=== PATIENT | male | born 1935 | race Caucasian/White ===

== ENCOUNTER 2021-11-14 09:27 | Observation (INO) | payer MEDICARE ==
[2021-11-14] MEDS ORDERED: SODIUM CHLORIDE 0.9% 1,000 ML IV STA (09:33)
[2021-11-14] MEDS ORDERED: PANTOPRAZOLE 40 MG/10 ML VIAL IVP STA (09:33)
[2021-11-14] MEDS ORDERED: OCTREOTIDE 100 MCG/ML INJ IVP STA (09:33)
[2021-11-14] MEDS ORDERED: SODIUM CHLORIDE 0.9% 500 ML 500 ML IV STA (09:33)
--- NOTE | 2021-11-14 09:52 | ED ---
General Adult HPI - General Stated complaint: syncope Time Seen by Provider: 11/14/21 09:30 Source: patient, RN notes reviewed, old records reviewed - History of Present Illness Initial comments: This is an 86-year-old male who presents emergency Department after had a syncopal episode today in the shower. According to the report we received from EMS patient had an episode of hematemesis yesterday and dark black stools today. Patient then went into the shower and passed out and his blood pressures closely brought into the emergency department. Patient himself states he has no pain is not short of breath patient does feel overall very fatigued. Patient denies any chest pain or palpitations. Patient denies any fever chills or cough. Patient denies being lightheaded while lying in bed. Patient denies any injury from the syncopal episode. - Related Data Home Medications Medication Instructions Recorded Confirmed Albuterol Nebulized [Ventolin 2.5 mg INHALATION RT-Q8H 10/29/21 11/14/21 Nebulized] Fluticasone/Umeclidin/Vilanter 1 puff INHALATION RT-DAILY 10/29/21 11/14/21 [Trelegy Ellipta 100-62.5-25] Metoprolol Tartrate [Lopressor] 50 mg PO BID 10/31/21 11/14/21 Acetaminophen Tab [Tylenol] 650 mg PO BID@0800,1600 11/14/21 11/14/21 Acetaminophen [Tylenol 8 Hour] 650 mg PO Q6H PRN 11/14/21 11/14/21 Aspirin 81 mg PO DAILY 11/14/21 11/14/21 Fenofibrate,Micronized 200 mg PO DAILY 11/14/21 11/14/21 [Fenofibrate] Sodium Bicarbonate 650 mg PO DAILY 11/14/21 11/14/21 hydrALAZINE HCL [Apresoline] 50 mg PO Q8H 11/14/21 11/14/21 Previous Rx's Medication Instructions Recorded Lactulose [Cephulac] 20 gm PO DAILY PRN ml 11/04/21 Melatonin 3 mg PO HS PRN tablet 11/04/21 Allergies Allergy/AdvReac Type Severity Reaction Status Date / Time No Known Allergies Allergy Verified 11/14/21 09:39 Review of Systems ROS Statement: Those systems with pertinent positive or pertinent negative responses have been documented in the HPI. ROS Other: All systems not noted in ROS Statement are negative. Past Medical History Past Medical History: Atrial Fibrillation, COPD, Hypertension History of Any Multi-Drug Resistant Organisms: None Reported Past Surgical History: Unable to Obtain, Joint Replacement, Orthopedic Surgery Additional Past Surgical History / Comment(s): Bilat knees Past Anesthesia/Blood Transfusion Reactions: No Reported Reaction Past Psychological History: No Psychological Hx Reported Smoking Status: Never smoker Past Alcohol Use History: None Reported Past Drug Use History: None Reported General Exam - General Exam Comments Initial Comments: GENERAL: Patient is well-developed and well-nourished. Patient is nontoxic and well- hydrated and is in mild distress. ENT: Neck is soft and supple. No significant lymphadenopathy is noted. Oropharynx is clear. Patient's tongue is pale. Moist mucous membranes. Neck has full range of motion without eliciting any pain. There is no thyroid enlargement and no masses were felt. EYES: The sclera were anicteric and conjunctiva is pale. Extraocular movements were intact and pupils were equal round and reactive to light. Eyelids were un remarkable. PULMONARY: Unlabored respirations. Good breath sounds bilaterally. No audible rales r honchi or wheezing was noted. CARDIOVASCULAR: There is a regular rate and rhythm without any murmurs gallops or rubs. ABDOMEN: Soft and nontender with normal bowel sounds. No palpable organomegaly was noted. There is no palpable pulsatile mass. SKIN: Patient's skin is pale NEUROLOGIC: Patient is alert and oriented x3. Cranial nerves II through XII are grossly intact. Motor and sensory are also intact. Normal speech, volume and content. Symmetrical smile. MUSCULOSKELETAL: Normal extremities with adequate strength and full range of motion. LYMPHATICS: No significant lymphadenopathy is noted PSYCHIATRIC: Normal psychiatric evaluation. Course Vital Signs 11/14/21 11/14/21 11/14/21 09:49 10:44 11:00 Temperature 97.8 F Pulse Rate 78 78 76 Respiratory 12 18 16 Rate Blood Pressure 93/39 139/99 128/81 O2 Sat by Pulse 95 95 Oximetry Medical Decision Making - Medical Decision Making EKG shows sinus rhythm with occasional PAC at a rate of 78 bpm [place] interval 274 QRS is 108 QT interval 398 QTC is 453. Patient's EKG shows some T-wave inversions in V5 and V6 and leads 1 and aVL which are seen on previous EKG. Patient and son agree that he is a DO NOT RESUSCITATE and the patient refuses blood and son is in agreement. I spoke with Dr. Maurice he agreed to admit the patient admitted the patient wrote admitting orders. - Lab Data Result diagrams: 11/14/21 09:54 11/14/21 09:54 Lab Results 11/14/21 11/14/21 11/14/21 Range/Units 09:54 09:54 09:54 WBC 6.3 (3.8-10.6) k/uL RBC 2.12 L (4.30-5.90) m/uL Hgb 6.9 L* D (13.0-17.5) gm/dL Hct 22.3 L (39.0-53.0) % MCV 105.2 H (80.0-100.0) fL MCH 32.6 (25.0-35.0) pg MCHC 31.0 (31.0-37.0) g/dL RDW 14.8 (11.5-15.5) % Plt Count 257 (150-450) k/uL MPV 9.2 Neutrophils % 75 % Lymphocytes % 18 % Monocytes % 4 % Eosinophils % 0 % Basophils % 0 % Neutrophils # 4.7 (1.3-7.7) k/uL Lymphocytes # 1.1 (1.0-4.8) k/uL Monocytes # 0.2 (0-1.0) k/uL Eosinophils # 0.0 (0-0.7) k/uL Basophils # 0.0 (0-0.2) k/uL Hypochromasia Moderate Macrocytosis Moderate PT 19.5 H (9.0-12.0) sec INR 2.0 H (<1.2) APTT 24.9 (22.0-30.0) sec Sodium 135 L (137-145) mmol/L Potassium 5.2 H (3.5-5.1) mmol/L Chloride 108 H (98-107) mmol/L Carbon Dioxide 16 L (22-30) mmol/L Anion Gap 11 mmol/L BUN 83 H (9-20) mg/dL Creatinine 4.43 H (0.66-1.25) mg/dL Est GFR (CKD-EPI)AfAm 13 (>60 ml/min/1.73 sqM) Est GFR (CKD-EPI)NonAf 11 (>60 ml/min/1.73 sqM) Glucose 114 H (74-99) mg/dL Plasma Lactic Acid South (0.7-2.0) mmol/L Calcium 7.8 L (8.4-10.2) mg/dL Magnesium 1.8 (1.6-2.3) mg/dL Total Bilirubin 0.9 (0.2-1.3) mg/dL AST 64 H (17-59) U/L ALT 28 (4-49) U/L Alkaline Phosphatase 44 (38-126) U/L Troponin I (0.000-0.034) ng/mL Total Protein 5.2 L (6.3-8.2) g/dL Albumin 2.2 L (3.5-5.0) g/dL Lipase 94 (23-300) U/L Blood Type Blood Type Confirm Blood Type Recheck Bld Type Recheck Status Antibody Screen Crossmatch Spec Expiration Date 11/14/21 11/14/21 11/14/21 Range/Units 09:54 09:54 09:54 WBC (3.8-10.6) k/uL RBC (4.30-5.90) m/uL Hgb (13.0-17.5) gm/dL Hct (39.0-53.0) % MCV (80.0-100.0) fL MCH (25.0-35.0) pg MCHC (31.0-37.0) g/dL RDW (11.5-15.5) % Plt Count (150-450) k/uL MPV Neutrophils % % Lymphocytes % % Monocytes % % Eosinophils % % Basophils % % Neutrophils # (1.3-7.7) k/uL Lymphocytes # (1.0-4.8) k/uL Monocytes # (0-1.0) k/uL Eosinophils # (0-0.7) k/uL Basophils # (0-0.2) k/uL Hypochromasia Macrocytosis PT (9.0-12.0) sec INR (<1.2) APTT (22.0-30.0) sec Sodium (137-145) mmol/L Potassium (3.5-5.1) mmol/L Chloride (98-107) mmol/L Carbon Dioxide (22-30) mmol/L Anion Gap mmol/L BUN (9-20) mg/dL Creatinine (0.66-1.25) mg/dL Est GFR (CKD-EPI)AfAm (>60 ml/min/1.73 sqM) Est GFR (CKD-EPI)NonAf (>60 ml/min/1.73 sqM) Glucose (74-99) mg/dL Plasma Lactic Acid South 4.9 H* (0.7-2.0) mmol/L Calcium (8.4-10.2) mg/dL Magnesium (1.6-2.3) mg/dL Total Bilirubin (0.2-1.3) mg/dL AST (17-59) U/L ALT (4-49) U/L Alkaline Phosphatase (38-126) U/L Troponin I 0.685 H* (0.000-0.034) ng/mL Total Protein (6.3-8.2) g/dL Albumin (3.5-5.0) g/dL Lipase (23-300) U/L Blood Type A Negative Blood Type Confirm Blood Type Recheck No Previous Record Bld Type Recheck Status CABO Indicated Antibody Screen NEGATIVE Crossmatch See Detail Spec Expiration Date 11/17/2021 - [id number] 11/14/21 Range/Units 10:00 WBC (3.8-10.6) k/uL RBC (4.30-5.90) m/uL Hgb (13.0-17.5) gm/dL Hct (39.0-53.0) % MCV (80.0-100.0) fL MCH (25.0-35.0) pg MCHC (31.0-37.0) g/dL RDW (11.5-15.5) % Plt Count (150-450) k/uL MPV Neutrophils % % Lymphocytes % % Monocytes % % Eosinophils % % Basophils % % Neutrophils # (1.3-7.7) k/uL Lymphocytes # (1.0-4.8) k/uL Monocytes # (0-1.0) k/uL Eosinophils # (0-0.7) k/uL Basophils # (0-0.2) k/uL Hypochromasia Macrocytosis PT (9.0-12.0) sec INR (<1.2) APTT (22.0-30.0) sec Sodium (137-145) mmol/L Potassium (3.5-5.1) mmol/L Chloride (98-107) mmol/L Carbon Dioxide (22-30) mmol/L Anion Gap mmol/L BUN (9-20) mg/dL Creatinine (0.66-1.25) mg/dL Est GFR (CKD-EPI)AfAm (>60 ml/min/1.73 sqM) Est GFR (CKD-EPI)NonAf (>60 ml/min/1.73 sqM) Glucose (74-99) mg/dL Plasma Lactic Acid South (0.7-2.0) mmol/L Calcium (8.4-10.2) mg/dL Magnesium (1.6-2.3) mg/dL Total Bilirubin (0.2-1.3) mg/dL AST (17-59) U/L ALT (4-49) U/L Alkaline Phosphatase (38-126) U/L Troponin I (0.000-0.034) ng/mL Total Protein (6.3-8.2) g/dL Albumin (3.5-5.0) g/dL Lipase (23-300) U/L Blood Type Blood Type Confirm A Negative Blood Type Recheck Bld Type Recheck Status Antibody Screen Crossmatch Spec Expiration Date Disposition Clinical Impression: Upper GI bleed, Fatigue, Anemia Disposition: ADMITTED IP TO THIS [facility] Referrals: Alton Espinal DO [Primary Care Provider] - 1-2 days Time of Disposition: 11:50
[2021-11-14 10:25] LABS: Albumin 2.2 g/dL (3.5-5.0); Calcium 7.8 mg/dL (8.4-10.2); Magnesium 1.8 mg/dL (1.6-2.3); Potassium 5.2 mmol/L (3.5-5.1); Total Bilirubin 0.9 mg/dL (0.2-1.3); Total Protein 5.2 g/dL (6.3-8.2)
[2021-11-14 10:31] LABS: Basophils % (A) 0 %; Eosinophils % (A) 0 %; HCT 22.3 % (39.0-53.0); Hypochromasia Moderate; Lymphocytes # (A) 1.1 k/uL (1.0-4.8); Lymphocytes % (A) 18 %; MCH 32.6 pg (25.0-35.0); MCV 105.2 fL (80.0-100.0); Macrocytosis Moderate; Mean Platelet Volume 9.2; Monocytes # (A) 0.2 k/uL (0-1.0); Monocytes % (A) 4 %; Neutrophils # (A) 4.7 k/uL (1.3-7.7); Neutrophils % (A) 75 %; Platelet Count 257 k/uL (150-450); RBC 2.12 m/uL (4.30-5.90); RDW 14.8 % (11.5-15.5); WBC 6.3 k/uL (3.8-10.6)
[2021-11-14 10:33] LABS: Partial Thromboplastin Time 24.9 sec (22.0-30.0); Prothrombin Time 19.5 sec (9.0-12.0)
[2021-11-14 10:35] LABS: HGB 6.9 gm/dL (13.0-17.5)
[2021-11-14] MEDS ORDERED: ONDANSETRON 4 MG/2 ML VIAL IVP STA (10:59)
[2021-11-14] MEDS ORDERED: SODIUM CHLORIDE 0.9% 1,000 ML IV ONE (12:01)
[2021-11-14] MEDS ORDERED: SODIUM FERRIC GLUCONAT-SUCROSE 125 MG in SODIUM CHLORIDE 0.9% 100 ML IVPB ONE (12:13)
[2021-11-14 12:27] LABS: Basophils % (A) 0 %; Eosinophils % (A) 0 %; HCT 20.8 % (39.0-53.0); Hypochromasia Slight; Lymphocytes # (A) 1.6 k/uL (1.0-4.8); Lymphocytes % (A) 22 %; MCH 33.1 pg (25.0-35.0); MCHC 31.5 g/dL (31.0-37.0); MCV 104.9 fL (80.0-100.0); Macrocytosis Moderate; Monocytes # (A) 0.3 k/uL (0-1.0); Monocytes % (A) 4 %; Neutrophils % (A) 70 %; Platelet Count 249 k/uL (150-450); RBC 1.99 m/uL (4.30-5.90); RDW 14.8 % (11.5-15.5); WBC 7.2 k/uL (3.8-10.6)
[2021-11-14] MEDS ORDERED: MELATONIN 3 MG TABLET PO PRN (12:28)
[2021-11-14] MEDS ORDERED: ACETAMINOPHEN TAB 325 MG TAB PO PRN (12:28)
[2021-11-14] MEDS ORDERED: METOPROLOL TARTRATE 50 MG TAB PO SCH (12:30)
[2021-11-14 13:03] LABS: HGB 6.6 gm/dL (13.0-17.5)
[2021-11-14] MEDS: IPRATROPIUM 0.5 MG/2.5 ML NEBU INHALATION SCH ×2 (15:19→18:46)
[2021-11-14] MEDS ORDERED: ALBUTEROL NEBULIZED 2.5 MG/3 ML INHALATION SCH (16:00)
[2021-11-14] MEDS: ACETAMINOPHEN TAB 325 MG TAB PO SCH (16:03)
[2021-11-14] MEDS: SODIUM BICARBONATE TAB 650 MG TAB PO SCH (16:03)
[2021-11-14] MEDS: FENOFIBRATE 160 MG TAB PO SCH (16:03)
--- NOTE | 2021-11-14 16:23 | XR ---
EXAMINATION TYPE: XR chest 1V portable DATE OF EXAM: 11/14/2021 CLINICAL HISTORY: Lethargy and weakness. TECHNIQUE: Single AP portable frontal upright view of the chest is obtained. COMPARISON: Chest x-ray 16 days ago. FINDINGS: The osseous structures are redemonstrated demineralized. Cardiac silhouette size stable and upper limits of normal to atherosclerotic thoracic aorta. Chronic emphysematous and pulmonary fibrotic changes redemonstrated with reticulonodular increased ma rkings in the lung bases left greater than right and in the periphery of the left mid to lower lung r edemonstrated. Small to tiny bilateral pleural effusions are thought present currently. Trachea is di lated similar to prior. IMPRESSION: Suspect fluid overload state as there is prominent reticular nodular increased markings b ilaterally and new small to tiny bilateral pleural effusions on background chronic emphysematous and pulmonary fibrotic changes. Areas of developing acute infiltrate not excluded. Correlate clinically.
--- NOTE | 2021-11-14 16:53 | P.HPIM ---
History of Present Illness H&P Date: 11/14/21 Chief Complaint: Vomited not Hospital course: This is a very pleasant 86-year-old patient who is established with Dr. Espinal. Came in from [place] in July. Chronic stable medical conditions include COPD, , hypertension. Does use walker at baseline. had previous surgery in the lower back. Has arthritis in many joints. Patient lives of [facility]. Patient was in the hospital from October 30 through November 04. Admitted with acute kidney injury, metabolic acidosis, protein calorie malnutrition. IV fluids. Bicarbonate. Lower back pain workup. Patient was seen by Dr. Schaeffer from orthopedics. Not for any further intervention currently. Was discharged to [facility] rehab. Patient's is rather tired. Not able to give any history. History is obtained partly with grandchildren of the bedside and from the EMS/ER report. Patient had a syncopal episode while in the shower at the [facility]. He was noted to have bright red emesis last night around 6 PM and had a black stool this morning. Patient was following simple commands but lethargic. Hemoglobin the ER came back at 6.6. Patient does not want any blood products. So IV Ferrlecit was ordered. Patient does appear rather tired. Review of systems: GEN.: Decreased appetite, weight loss EYES: None HEENT: Decreased hearing NECK: None RESPIRATORY: None CARDIOVASCULAR: None GASTROINTESTINAL: As above GENITOURINARY: None MUSCULOSKELETAL: Several joint pains LYMPHATICS: None HEMATOLOGICAL: None PSYCHIATRY: Forgetful NEUROLOGICAL: Uses a walker Past medical history to include: Atrial fibrillation, COPD, hypertension, CK D, Family history: Reviewed, noncontributory to presentation Social history: Retired. [facility] [place] [facility]. Moved here from [place] in July. Does use a walker. son elio is the POA Family history: Patient unable to tell Physical examination: VITAL SIGNS: 97.8, 78, 12, 93/39, 95% on 2 L GENERAL: Thin built, tired, lethargic, just about arousable. Some bruising on the chest wall EYES: Pupils equal. Conjunctiva palel. HEENT: External appearance of nose and ears normal, oral cavity grossly normal. NECK: JVD not raised; masses not palpable. HEART: First and second heart sounds are normal; no edema. LUNGS: Respiratory rate normal; decreased breath sounds. ABDOMEN: Soft, nontender, liver spleen not palpable, no masses palpable. PSYCH: [ALLERGY, arousable, not able to assess l. MUSCULOSKELETAL:No Clubbing/cyanosis;muscles-grossly intact. Evidence of OA in multiple joints. NEUROLOGICAL: Cranial nerves grossly intact; no facial asymmetry, moving all 4 limbs. LYMPHATICS: No lymph nodes palpable in the axilla and neck INVESTIGATIONS, reviewed in the clinical context: November 14: White count 7.2 hemoglobin 6.6 platelets 249 potassium 5.2 BUN 83 creatinine 4.43 Troponin I 0.685. Coronavirus [PCR]: Not detected EKG tracing personally reviewed by me-sinus rhythm. ST/T-wave changes. Chest x-ray film personally reviewed by me-fibrotic changes, likely chronic Previous study: November 04: Sodium 127 potassium 4.2 BUN 62 creatinine 3.96 magnesium 1.7 Assessment and plan: -Acute GI bleed with patient vomiting blood yesterday evening and this morning and that black stools. Patient is on aspirin. Add PPI. -Acute blood loss anemia from GI bleed. As per the POA patient not to get any blood products. IV Ferrlecit ordered. 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 Likely from worsening renal function. -Essential hypertension with CK D Currently blood pressure is running on the lower side. Hold hydralazine. Cutback Lopressor to 12.5 twice a day. -Metabolic acidosis from CK D Sodium bicarbonate 650 mg 3 times a day -COPD in a previous smoker Symbicort 80/4.52 puffs twice a day, DuoNeb 4 times a day -Mild cognitive impairment -Moderate protein calorie malnutrition decreased oral intake Ensure supplement. Dietitian -Chronic gait dysfunction, and a baseline uses a walker Fall precautions -Primary osteoarthritis multiple joints bilaterally Tylenol when necessary -Chronic low back pain with a history of prior surgery. No acute intervention by Dr. Schaeffer; will follow outpatient. Dr. Harris for pain management -Hyperkalemia Kayexalate 30 g 1. Renal diet. -DO NOT RESUSCITATE - son Elio, his DP OA Patient is not doing too well. Patient still grandchildren of present. I will call patient's son. IV ferrous it was ordered. Received a message from the ER that son wants to hold off on IV Ferrlecit for now. Continue with supportive care. IV PPI. Prognosis guarded. Past Medical History Past Medical History: Atrial Fibrillation, COPD, Hypertension History of Any Multi-Drug Resistant Organisms: None Reported Past Surgical History: Unable to Obtain, Joint Replacement, Orthopedic Surgery Additional Past Surgical History / Comment(s): Bilat knees Past Anesthesia/Blood Transfusion Reactions: No Reported Reaction Past Psychological History: No Psychological Hx Reported Smoking Status: Never smoker Past Alcohol Use History: None Reported Past Drug Use History: None Reported Medications and Allergies Home Medications Medication Instructions Recorded Confirmed Type Albuterol Nebulized [Ventolin 2.5 mg INHALATION RT-Q8H 10/29/21 11/14/21 History Nebulized] Fluticasone/Umeclidin/Vilanter 1 puff INHALATION RT-DAILY 10/29/21 11/14/21 History [Trelegy Ellipta 100-62.5-25] Metoprolol Tartrate [Lopressor] 50 mg PO BID 10/31/21 11/14/21 History Lactulose [Cephulac] 20 gm PO DAILY PRN ml 11/04/21 11/14/21 Rx Melatonin 3 mg PO HS PRN tablet 11/04/21 11/14/21 Rx Acetaminophen Tab [Tylenol] 650 mg PO BID@0800,1600 11/14/21 11/14/21 History Acetaminophen [Tylenol 8 Hour] 650 mg PO Q6H PRN 11/14/21 11/14/21 History Aspirin 81 mg PO DAILY 11/14/21 11/14/21 History Fenofibrate,Micronized 200 mg PO DAILY 11/14/21 11/14/21 History [Fenofibrate] Sodium Bicarbonate 650 mg PO DAILY 11/14/21 11/14/21 History hydrALAZINE HCL [Apresoline] 50 mg PO Q8H 11/14/21 11/14/21 History Allergies Allergy/AdvReac Type Severity Reaction Status Date / Time No Known Allergies Allergy Verified 11/14/21 09:39 Physical Exam Vitals: Vital Signs Temp Pulse Resp BP Pulse Ox 11/14/21 12:59 80 18 107/46 95 11/14/21 12:00 78 18 88/39 95 11/14/21 11:00 76 16 128/81 95 11/14/21 10:44 78 18 139/99 95 11/14/21 09:49 97.8 F 78 12 93/39 Intake and Output 11/14/21 11/14/21 11/14/21 06:59 14:59 22:59 Other: Weight 180 kg Results CBC & Chem 7: 11/14/21 12:10 11/14/21 09:54 Labs: Abnormal Lab Results - Last 24 Hours (Table) 11/14/21 11/14/21 11/14/21 Range/Units 09:54 09:54 09:54 RBC 2.12 L (4.30-5.90) m/uL Hgb 6.9 L* D (13.0-17.5) gm/dL Hct 22.3 L (39.0-53.0) % MCV 105.2 H (80.0-100.0) fL PT 19.5 H (9.0-12.0) sec INR 2.0 H (<1.2) Sodium 135 L (137-145) mmol/L Potassium 5.2 H (3.5-5.1) mmol/L Chloride 108 H (98-107) mmol/L Carbon Dioxide 16 L (22-30) mmol/L BUN 83 H (9-20) mg/dL Creatinine 4.43 H (0.66-1.25) mg/dL Glucose 114 H (74-99) mg/dL Plasma Lactic Acid South (0.7-2.0) mmol/L Calcium 7.8 L (8.4-10.2) mg/dL AST 64 H (17-59) U/L Troponin I (0.000-0.034) ng/mL Total Protein 5.2 L (6.3-8.2) g/dL Albumin 2.2 L (3.5-5.0) g/dL Crossmatch 11/14/21 11/14/21 11/14/21 Range/Units 09:54 09:54 09:54 RBC (4.30-5.90) m/uL Hgb (13.0-17.5) gm/dL Hct (39.0-53.0) % MCV (80.0-100.0) fL PT (9.0-12.0) sec INR (<1.2) Sodium (137-145) mmol/L Potassium (3.5-5.1) mmol/L Chloride (98-107) mmol/L Carbon Dioxide (22-30) mmol/L BUN (9-20) mg/dL Creatinine (0.66-1.25) mg/dL Glucose (74-99) mg/dL Plasma Lactic Acid South 4.9 H* (0.7-2.0) mmol/L Calcium (8.4-10.2) mg/dL AST (17-59) U/L Troponin I 0.685 H* (0.000-0.034) ng/mL Total Protein (6.3-8.2) g/dL Albumin (3.5-5.0) g/dL Crossmatch See Detail 11/14/21 Range/Units 12:10 RBC 1.99 L (4.30-5.90) m/uL Hgb 6.6 L* (13.0-17.5) gm/dL Hct 20.8 L (39.0-53.0) % MCV 104.9 H (80.0-100.0) fL PT (9.0-12.0) sec INR (<1.2) Sodium (137-145) mmol/L Potassium (3.5-5.1) mmol/L Chloride (98-107) mmol/L Carbon Dioxide (22-30) mmol/L BUN (9-20) mg/dL Creatinine (0.66-1.25) mg/dL Glucose (74-99) mg/dL Plasma Lactic Acid South (0.7-2.0) mmol/L Calcium (8.4-10.2) mg/dL AST (17-59) U/L Troponin I (0.000-0.034) ng/mL Total Protein (6.3-8.2) g/dL Albumin (3.5-5.0) g/dL Crossmatch
[2021-11-14] MEDS: SYMBICORT 80-4.5 MCG INHALER INHALATION SCH (18:46)
[2021-11-14] MEDS ORDERED: IPRATROPIUM-ALBUTEROL 3 ML NEB INHALATION PRN (18:47)
[2021-11-14 19:13] LABS: Basophils % (A) 0 %; Eosinophils % (A) 0 %; HCT 20.3 % (39.0-53.0); Hypochromasia Slight; Lymphocytes # (A) 2.2 k/uL (1.0-4.8); Lymphocytes % (A) 27 %; MCH 32.4 pg (25.0-35.0); MCHC 30.9 g/dL (31.0-37.0); MCV 104.9 fL (80.0-100.0); Macrocytosis Moderate; Monocytes # (A) 0.4 k/uL (0-1.0); Monocytes % (A) 5 %; Neutrophils # (A) 5.2 k/uL (1.3-7.7); Neutrophils % (A) 63 %; Platelet Count 232 k/uL (150-450); RBC 1.93 m/uL (4.30-5.90); WBC 8.1 k/uL (3.8-10.6)
[2021-11-14 19:18] LABS: HGB 6.3 gm/dL (13.0-17.5)
[2021-11-14] MEDS: PANTOPRAZOLE 40 MG TABLET PO SCH (21:34)
[2021-11-14] MEDS: METOPROLOL TARTRATE 12.5 MG TAB PO SCH (22:38)
[2021-11-15 07:23] LABS: Calcium 7.9 mg/dL (8.4-10.2); Potassium 5.5 mmol/L (3.5-5.1)
[2021-11-15] MEDS: SODIUM BICARBONATE TAB 650 MG TAB PO SCH (07:49)
[2021-11-15] MEDS: METOPROLOL TARTRATE 12.5 MG TAB PO SCH ×2 (07:49→21:11)
[2021-11-15] MEDS: PANTOPRAZOLE 40 MG TABLET PO SCH ×2 (07:49→16:12)
[2021-11-15] MEDS: ACETAMINOPHEN TAB 325 MG TAB PO SCH ×2 (07:49→16:13)
[2021-11-15] MEDS: FENOFIBRATE 160 MG TAB PO SCH (07:49)
[2021-11-15] MEDS: SYMBICORT 80-4.5 MCG INHALER INHALATION SCH (08:18)
--- NOTE | 2021-11-15 09:03 | P.NPCON ---
History of Present Illness - Reason for Consult acute renal failure, chronic renal failure - History of Present Illness Reason for consultation: Acute kidney injury on chronic kidney disease History of present illness: Patient is a 86-year-old male seen in renal consultation for acute kidney injury on chronic kidney disease. Patient was seen and examined in the emergency room. Creatinine on admission was 4.43 and is 5.45 today. Patient was recently admitted at this facility earlier this month and at that time his creatinine was in the range of 3.5-4.5. No other records available. Hemoglobin is noted to be low as 6.6 on admission and repeated was 6.3. No active bleeding noted. Patient is currently resting in bed and not responding much to questions. He is quite lethargic. Per the nurse he pulled out his IV line. He is refusing IV fluids as well as any blood transition. He is requesting to be on hospice. Blood pressure stable. Afebrile. He tested negative for coronavirus. Chest x- ray suggestive of chronic COPD as well as fluid overload. Vital signs are stable. General: Appears lethargic. Lungs: Breath sounds decreased. HEART: Rate and Rhythm are regular. ABDOMEN: Soft, no distention. EXTREMITITES: No edema. Past Medical History Past Medical History: Atrial Fibrillation, COPD, Hypertension History of Any Multi-Drug Resistant Organisms: None Reported Past Surgical History: Unable to Obtain, Joint Replacement, Orthopedic Surgery Additional Past Surgical History / Comment(s): Bilat knees Past Anesthesia/Blood Transfusion Reactions: No Reported Reaction Past Psychological History: No Psychological Hx Reported Smoking Status: Never smoker Past Alcohol Use History: None Reported Past Drug Use History: None Reported Medications and Allergies Home Medications Medication Instructions Recorded Confirmed Type Albuterol Nebulized [Ventolin 2.5 mg INHALATION RT-Q8H 10/29/21 11/14/21 History Nebulized] Fluticasone/Umeclidin/Vilanter 1 puff INHALATION RT-DAILY 10/29/21 11/14/21 History [Trelegy Ellipta 100-62.5-25] Metoprolol Tartrate [Lopressor] 50 mg PO BID 10/31/21 11/14/21 History Lactulose [Cephulac] 20 gm PO DAILY PRN ml 11/04/21 11/14/21 Rx Melatonin 3 mg PO HS PRN tablet 11/04/21 11/14/21 Rx Acetaminophen Tab [Tylenol] 650 mg PO BID@0800,1600 11/14/21 11/14/21 History Acetaminophen [Tylenol 8 Hour] 650 mg PO Q6H PRN 11/14/21 11/14/21 History Aspirin 81 mg PO DAILY 11/14/21 11/14/21 History Fenofibrate,Micronized 200 mg PO DAILY 11/14/21 11/14/21 History [Fenofibrate] Sodium Bicarbonate 650 mg PO DAILY 11/14/21 11/14/21 History hydrALAZINE HCL [Apresoline] 50 mg PO Q8H 11/14/21 11/14/21 History Allergies Allergy/AdvReac Type Severity Reaction Status Date / Time No Known Allergies Allergy Verified 11/14/21 09:39 Physical Exam Vitals: Vital Signs Temp Pulse Pulse Resp BP BP Pulse Ox 11/15/21 08:00 97.7 F 84 16 103/46 99 11/15/21 07:15 97.9 F 80 14 103/46 99 11/15/21 03:40 97.6 F 87 18 113/61 98 11/15/21 00:00 72 16 106/52 100 11/14/21 20:00 97.4 F L 80 18 114/65 100 11/14/21 19:00 72 26 H 129/71 98 11/14/21 12:59 80 18 107/46 95 11/14/21 12:00 78 18 88/39 95 11/14/21 11:00 76 16 128/81 95 11/14/21 10:44 78 18 139/99 95 11/14/21 09:49 97.8 F 78 12 93/39 Intake and Output 11/14/21 11/15/21 11/15/21 22:59 06:59 14:59 Other: # Voids 1 Results - Lab Results Most recent lab results Calcium 7.9 mg/dL (8.4-10.2) L 11/15/21 06:51 Magnesium 2.0 mg/dL (1.6-2.3) 11/15/21 06:51 11/14/21 19:10 11/15/21 06:51 Assessment and Plan Plan: Assessment: 1. 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 Creatinine earlier this month was in the range of 3.5-4.5. Today it is up to 5.45. There is component of ATN from acute blood loss anemia. Ultrasound from October 2021 showed atrophic right kidney. Left kidney wasn't visualized completely. 2. Acute on chronic diastolic CHF. 3. Hyperkalemia secondary to acute kidney injury, metabolic acidosis and GI 3. 4. Elevated BUN secondary to acute kidney injury and GI bleed. 5. Metabolic acidosis secondary to acute kidney injury. Plan: Patient has refused blood transfusion as well as IV fluids. He is refusing all other medications. Patient had refused renal replacement therapy last admission. He is requesting hospice and has been consulted. Thank you for the consultation. I will continue to follow the patient with you during his hospital stay.
[2021-11-15] MEDS: Acetaminophen-Codeine 300-30mg TAB PO PRN (12:37)
--- NOTE | 2021-11-15 18:37 | P.PN ---
Progress Note - Text Progress Note Date: 11/15/21 Chief Complaint: Vomited not Hospital course: This is a very pleasant 86-year-old patient who is established with Dr. Espinal. Came in from [place] in July. Chronic stable medical conditions include COPD, , hypertension. Does use walker at baseline. had previous surgery in the lower back. Has arthritis in many joints. Patient lives of [facility]. Patient was in the hospital from October 30 through November 04. Admitted with acute kidney injury, metabolic acidosis, protein calorie malnutrition. IV fluids. Bicarbonate. Lower back pain workup. Patient was seen by Dr. Schaeffer from orthopedics. Not for any further intervention currently. Was discharged to [facility] rehab. Patient's is rather tired. Not able to give any history. History is obtained partly with grandchildren of the bedside and from the EMS/ER report. Patient had a syncopal episode while in the shower at the [facility]. He was noted to have bright red emesis last night around 6 PM and had a black stool this morning. Patient was following simple commands but lethargic. Hemoglobin the ER came back at 6.6. Patient does not want any blood products. So IV Ferrlecit was ordered. Patient does appear rather tired. Admitted with acute GI bleed with vomiting blood and black stools, acute blood loss anemia, acute metabolic encephalopathy/delirium, metabolic acidosis, hyperkalemia. Patient did not want any blood products. November 15: Patient is more awake today. Answering questions. Complaining of pain in his feet. Some of which is chronic. Patient's son his and 2 children are present. [facility] hospice was consulted. Looking at different options. Care was discussed in detail with the patient's son and family in terms of placement. Looking at possible discharge tomorrow. We'll de-escalate the care. Labs discontinued. Review of systems: Was done for constitutional, cardiovascular, GI, pulmonary. relevant finding as above Active Medications Acetaminophen (Acetaminophen Tab 325 Mg Tab) 650 mg PO Q6H PRN PRN Reason: Pain Acetaminophen (Acetaminophen Tab 325 Mg Tab) 650 mg PO BID@0800,1600 SUNG Last Admin: 11/15/21 16:13 Dose: 650 mg Documented by: Acetaminophen/Codeine Phosphate (Acetaminophen-Codeine 300-30mg Tab) 1 each PO Q4HR PRN PRN Reason: Pain Last Admin: 11/15/21 12:37 Dose: 1 each Documented by: Albuterol/Ipratropium (Ipratropium-Albuterol 3 Ml Neb) 3 ml INHALATION RT-Q4H PRN PRN Reason: Shortness Of Breath Or Wheezing Budesonide/Formoterol Fumarate (Symbicort 80-4.5 Mcg Inhaler) 2 puff INHALATION RT-BID [facility] Last Admin: 11/15/21 08:18 Dose: Not Given Documented by: Melatonin (Melatonin 3 Mg Tablet) 3 mg PO HS PRN PRN Reason: Insomnia Metoprolol Tartrate (Metoprolol Tartrate 12.5 Mg Tab) 12.5 mg PO BID [facility] Last Admin: 11/15/21 07:49 Dose: Not Given Documented by: Pantoprazole Sodium (Pantoprazole 40 Mg Tablet) 40 mg PO AC-BID [facility] Last Admin: 11/15/21 16:12 Dose: 40 mg Documented by: Sodium Bicarbonate (Sodium Bicarbonate Tab 650 Mg Tab) 650 mg PO DAILY [facility] Last Admin: 11/15/21 07:49 Dose: Not Given Documented by: Past medical history to include: Atrial fibrillation, COPD, hypertension, CK D, Family history: Reviewed, noncontributory to presentation Social history: Retired. [facility]. Moved here from [place] in July. Does use a walker. son álvaro is the POA Family history: Patient unable to tell Physical examination: VITAL SIGNS: Afebrile, 109, 16, 88/55, 94% on 4 L GENERAL: , tired, more awake today. Answering questions Some bruising on the chest wall EYES: Pupils equal. Conjunctiva pale. HEENT: External appearance of nose and ears normal, oral cavity grossly normal. NECK: JVD not raised; masses not palpable. HEART: First and second heart sounds are normal; no edema. LUNGS: Respiratory rate normal; decreased breath sounds. ABDOMEN: Soft, nontender, liver spleen not palpable, no masses palpable. PSYCH: Answering simple questions. MUSCULOSKELETAL:No Clubbing/cyanosis;muscles-grossly intact. Evidence of OA in multiple joints. NEUROLOGICAL: Cranial nerves grossly intact; no facial asymmetry, moving all 4 limbs. INVESTIGATIONS, reviewed in the clinical context: November 15: Potassium 5.5 x 12 17 BUN 103 creatinine 5.45 November 14: White count 7.2 hemoglobin 6.6 platelets 249 potassium 5.2 BUN 83 creatinine 4.43 Troponin I 0.685. Coronavirus [PCR]: Not detected EKG tracing personally reviewed by me-sinus rhythm. ST/T-wave changes. Chest x-ray film personally reviewed by me-fibrotic changes, likely chronic Previous study: November 04: Sodium 127 potassium 4.2 BUN 62 creatinine 3.96 magnesium 1.7 Assessment and plan: -Acute GI bleed with patient vomiting blood yesterday evening and this morning and that black stools. Aspirin discontinued. PPI. -Acute blood loss anemia from GI bleed. As per the POA patient not to get any blood products. IV Ferrlecit ordered- declined. 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 Likely from worsening renal function.: Improvement -Essential hypertension with CK D Currently blood pressure is running on the lower side. Hold hydralazine. Lopressor to 12.5 twice a day. -Metabolic acidosis from CK D Sodium bicarbonate 650 mg 3 times a day -COPD in a previous smoker Symbicort 80/4.52 puffs twice a day-hold, DuoNeb 4 times a day -Mild cognitive impairment -Moderate protein calorie malnutrition decreased oral intake Ensure supplement. Dietitian -Chronic gait dysfunction, and a baseline uses a walker Fall precautions -Primary osteoarthritis multiple joints bilaterally Tylenol when necessary -Chronic low back pain with a history of prior surgery. Pain management -Hyperkalemia: Slow to respond Kayexalate 30 g 1. Renal diet. -DO NOT RESUSCITATE - son Álvaro, his DP OA We will de-escalate patient's care. Stop blood draws. Stop Symbicort as patient may be weak to use it. DuoNeb scheduled. Hospice is talking to the for placement. Hopefully tomorrow Advanced care planning: Spoke with stent to the patient his son is also present. At the bedside. Hospice is being worked out. Options about place for hospice including patient's own apartment with 24 7 care is being looked into. We discussed about feeding we just purely to be comfort feeding. Keep the medications simple. Add Tylenol 3 for the foot pain. Questions answered. Discharged with hospice tomorrow. Time spent for a ACP about 20 minutes
[2021-11-15] MEDS: IPRATROPIUM-ALBUTEROL 3 ML NEB INHALATION SCH (19:14)
[2021-11-16] MEDS: IPRATROPIUM-ALBUTEROL 3 ML NEB INHALATION SCH ×2 (07:20→11:29)
[2021-11-16] MEDS: Acetaminophen-Codeine 300-30mg TAB PO PRN (08:22)
[2021-11-16 08:23] VITALS: BP 91/57; RESP 20; TEMP 97.6
[2021-11-16] MEDS: ACETAMINOPHEN TAB 325 MG TAB PO SCH (08:23)
[2021-11-16] MEDS: PANTOPRAZOLE 40 MG TABLET PO SCH (08:23)
[2021-11-16] MEDS: SODIUM BICARBONATE TAB 650 MG TAB PO SCH (08:23)
[2021-11-16] MEDS: METOPROLOL TARTRATE 12.5 MG TAB PO SCH (08:33)
[2021-11-16 13:30] VITALS: BMI 50.9
[2021-11-16 14:07] VITALS: PULSE 48
--- NOTE | 2021-11-16 21:52 | P.DS ---
Providers Date of admission: 11/14/21 12:04 Expected date of discharge: 11/16/21 Attending physician: Ralph Maurice Primary care physician: Alton Espinal [facility] Course: Chief Complaint: Vomited not Hospital course: This is a very pleasant 86-year-old patient who is established with Dr. Espinal. Came in from [place] in July. Chronic stable medical conditions include COPD, , hypertension. Does use walker at baseline. had previous surgery in the lower back. Has arthritis in many joints. Patient lives of [facility]. Patient was in the hospital from October 30 through November 04. Admitted with acute kidney injury, metabolic acidosis, protein calorie malnutrition. IV fluids. Bicarbonate. Lower back pain workup. Patient was seen by Dr. Schaeffer from orthopedics. Not for any further intervention currently. Was discharged to [facility] rehab. Patient's is rather tired. Not able to give any history. History is obtained partly with grandchildren of the bedside and from the EMS/ER report. Patient had a syncopal episode while in the shower at the [facility]. He was noted to have bright red emesis last night around 6 PM and had a black stool this morning. Patient was following simple commands but lethargic. Hemoglobin the ER came back at 6.6. Patient does not want any blood products. So IV Ferrlecit was ordered. Patient does appear rather tired. Admitted with acute GI bleed with vomiting blood and black stools, acute blood loss anemia, acute metabolic encephalopathy/delirium, metabolic acidosis, hyperkalemia. Patient did not want any blood products. November 15: Patient is more awake today. Answering questions. Complaining of pain in his feet. Some of which is chronic. Patient's son his and 2 children are present. [facility] hospice was consulted. Looking at different options. Care was discussed in detail with the patient's son and family in terms of placement. Looking at possible discharge tomorrow. We'll de-escalate the care. Labs discontinued. November 16: Eating small amounts. Nasal cannula. Able to answer simple questions. [facility] Consultation: Dr. Krishnan from nephrology Past medical history to include: Atrial fibrillation, COPD, hypertension, CK D, Family history: Reviewed, noncontributory to presentation Social history: Retired. Currently had to rehab [facility] [place] on. Moved here from [place] in July. Does use a walker. son álvaro is the POA Family history: Patient unable to tell Physical examination: VITAL SIGNS: 97.6, RT, 20, 91/57, 83% on 5 L GENERAL: , tired, awake. Answering questions Some bruising on the chest wall EYES: Pupils equal. Conjunctiva pale. NECK: JVD not raised; masses not palpable. HEART: First and second heart sounds are normal; no edema. LUNGS: Respiratory rate normal; decreased breath sounds. ABDOMEN: Soft, nontender, liver spleen not palpable, no masses palpable. PSYCH: Answering simple questions. NEUROLOGICAL: Cranial nerves grossly intact; no facial asymmetry, moving all 4 limbs. INVESTIGATIONS, reviewed in the clinical context: November 15: Potassium 5.5 x 12 17 BUN 103 creatinine 5.45 November 14: White count 7.2 hemoglobin 6.6 platelets 249 potassium 5.2 BUN 83 creatinine 4.43 Troponin I 0.685. Coronavirus [PCR]: Not detected EKG tracing personally reviewed by me-sinus rhythm. ST/T-wave changes. Chest x-ray film personally reviewed by me-fibrotic changes, likely chronic Previous study: November 04: Sodium 127 potassium 4.2 BUN 62 creatinine 3.96 magnesium 1.7 Assessment and plan: -Acute GI bleed with patient vomiting blood black stools. Aspirin discontinued. PPI. -Acute blood loss anemia from GI bleed. As per the POA patient not to get any blood products. IV Ferrlecit ordered- declined. 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 Likely from worsening renal function.: Improvement -Essential hypertension with CK D Currently blood pressure is running on the lower side. Hold hydralazine. Lopressor to 12.5 twice a day. -Metabolic acidosis from CK D Sodium bicarbonate 650 mg 3 times a day -COPD in a previous smoker Symbicort 80/4.52 puffs twice a day-hold, DuoNeb 4 times a day -Mild cognitive impairment -Moderate protein calorie malnutrition decreased oral intake Ensure supplement. Dietitian -Chronic gait dysfunction, and a baseline uses a walker Fall precautions -Primary osteoarthritis multiple joints bilaterally Tylenol when necessary -Chronic low back pain with a history of prior surgery. Pain management -Hyperkalemia: Slow to respond Kayexalate 30 g 1. Renal diet. -DO NOT RESUSCITATE - son Álvaro, his DP OA Disposition: Hospice at adult [facility] Plan - Discharge Summary Discharge Rx Participant: No New Discharge Prescriptions: New Metoprolol Tartrate [Lopressor] 12.5 mg PO BID #60 tab Continue Albuterol Nebulized [Ventolin Nebulized] 2.5 mg INHALATION RT-Q8H Acetaminophen [Tylenol 8 Hour] 650 mg PO Q6H PRN PRN Reason: Pain Sodium Bicarbonate 650 mg PO DAILY Discontinued Metoprolol Tartrate [Lopressor] 50 mg PO BID Lactulose [Cephulac] 20 gm PO DAILY PRN ml PRN Reason: Constipation Melatonin 3 mg PO HS PRN tablet PRN Reason: Insomnia hydrALAZINE HCL [Apresoline] 50 mg PO Q8H Fluticasone/Umeclidin/Vilanter [Trelegy Ellipta 100-62.5-25] 1 puff INHALATION RT-DAILY Fenofibrate,Micronized [Fenofibrate] 200 mg PO DAILY Aspirin 81 mg PO DAILY Acetaminophen Tab [Tylenol] 650 mg PO BID@0800,1600 Discharge Medication List Albuterol Nebulized [Ventolin Nebulized] 2.5 mg INHALATION RT-Q8H 10/29/21 [History] Acetaminophen [Tylenol 8 Hour] 650 mg PO Q6H PRN 11/14/21 [History] Sodium Bicarbonate 650 mg PO DAILY 11/14/21 [History] Metoprolol Tartrate [Lopressor] 12.5 mg PO BID #60 tab 11/16/21 [Rx] Follow up Appointment(s)/Referral(s): Alton Espinal DO [Primary Care Provider] - 1-2 days Discharge Disposition: HOME WITH HOSPICE
== END 2021-11-16 14:00 | disposition hospice, home (50) ==
LOC: EC 09:27 → INTOOBSV 12:04 → 3SCARD 12:04 → 5NMEDONC 11-15 12:32 → UNDODISIN 11-16 14:00
PROVIDERS: ADMIT Hospitalist; ATTEND Hospitalist
DX: K92.0 Hematemesis (principal); G93.41 Metabolic encephalopathy; D62 Acute posthemorrhagic anemia; N17.0 Acute kidney failure with tubular necrosis; E87.5 Hyperkalemia; I13.0 Hypertensive heart and chronic kidney disease with heart failure and stage 1 through stage 4 chronic kidney disease, or unspecified chronic kidney disease; N18.4 Chronic kidney disease, stage 4 (severe); I50.33 Acute on chronic diastolic (congestive) heart failure; E44.0 Moderate protein-calorie malnutrition; E87.2 Acidosis; J44.9 Chronic obstructive pulmonary disease, unspecified; I48.91 Unspecified atrial fibrillation; M13.0 Polyarthritis, unspecified; S20.219A Contusion of unspecified front wall of thorax, initial encounter; G31.84 Mild cognitive impairment of uncertain or unknown etiology; M79.672 Pain in left foot; M79.671 Pain in right foot; G89.29 Other chronic pain; M54.50 Low back pain, unspecified; R55 Syncope and collapse; R19.5 Other fecal abnormalities; Z66 Do not resuscitate; Z53.20 Procedure and treatment not carried out because of patient's decision for unspecified reasons; Z20.822 Contact with and (suspected) exposure to COVID-19; Z79.82 Long term (current) use of aspirin; Z79.51 Long term (current) use of inhaled steroids; Z79.899 Other long term (current) drug therapy; Z87.891 Personal history of nicotine dependence; Z96.60 Presence of unspecified orthopedic joint implant; Z98.890 Other specified postprocedural states
CPT/HCPCS: 96361; 96374; 96375; 99285; 36415; 93005; 86900; 86901; 80053; 80048; 83605; 83690; 83735 ×2; 84484; 85025; 85610; 85730; 86850; 87635; 71045; G0378 ×4; J2405; J2354; C9113